=== PATIENT | male | born 1995 | race Two or more races ===

== ENCOUNTER 2017-09-14 08:51 | Emergency (ER) | payer OTHER ==
--- NOTE | 2017-09-14 10:39 | RADIOLOGY REPORT (SQ) ---
EXAM DESCRIPTION: TIBIA FIBULA RIGHT COMPLETED DATE/TIME: 09/14/2017 10:25 am REASON FOR STUDY: pain to lower leg COMPARISON: None. NUMBER OF VIEWS: Two views. TECHNIQUE: Two radiographic images acquired of the right tibia and fibula to include the knee and an kle in at least one projection. LIMITATIONS: None. FINDINGS: MINERALIZATION: Normal. BONES: No acute fracture or dislocation. No worrisome bone lesions. No significant osteophytes. SOFT TISSUES: No obvious swelling or foreign body. OTHER: No other significant finding. IMPRESSION: NEGATIVE STUDY OF THE RIGHT TIBIA AND FIBULA. NO EXPLANATION FOR PAIN. TECHNICAL DOCUMENTATION: JOB ID: [id number] [employer]- All Rights Reserved Reading location - IP/workstation name: [email or web address]
--- NOTE | 2017-09-14 11:48 | ER Document Report ---
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 Patient has been running a lot for his physical training. Reports he ran 2-1/2-3 miles 3 days ago. Patient denies any direct trauma to his leg. Patient is unable to bear weight on that leg. He reports that he noticed a color change to his right foot this morning. He noticed that his foot seemed bluish/purple for about 20 minutes before the color returned. Patient is a non- smoker. No recent travel. No recent surgeries. no chest pain or shortness of breath TRAVEL OUTSIDE OF THE [place] IN LAST 30 DAYS: No - HPI Patient complains to provider of: Pain Location: Leg - Right anterior Occurred: Other - 3 days Onset/Duration: Sudden, Persistent, Worse Quality of pain: Pressure, Stabbing Recent injury: No Exacerbated by: Walking Relieved by: Nothing - Related Data Allergies/Adverse Reactions: No Known Allergies Allergy (Unverified 09/14/17 10:03) Past Medical History - General Information source: Patient - Social History Smoking Status: Never Smoker Chew tobacco use (# tins/day): No Frequency of alcohol use: None Drug Abuse: None Occupation: [employer] Family History: Reviewed & Not Pertinent Patient has suicidal ideation: No Patient has homicidal ideation: No Renal/ Medical History: Denies: Hx Peritoneal Dialysis Review of Systems - Review of Systems Constitutional: No symptoms reported EENT: No symptoms reported Cardiovascular: No symptoms reported Respiratory: No symptoms reported Gastrointestinal: No symptoms reported Genitourinary: No symptoms reported Male Genitourinary: No symptoms reported Musculoskeletal: See HPI Skin: No symptoms reported Hematologic/Lymphatic: No symptoms reported Neurological/Psychological: No symptoms reported Physical Exam - Vital signs Vitals: Temp Pulse Resp BP Pulse Ox 98.4 F 72 16 138/69 H 96 09/14/17 09:05 09/14/17 09:05 09/14/17 09:05 09/14/17 09:05 09/14/17 09:05 Interpretation: Normal - General General appearance: Appears well, Alert - HEENT Head: Normocephalic, Atraumatic Eyes: Normal Pupils: PERRL - Respiratory Respiratory status: No respiratory distress Chest status: Nontender Breath sounds: Normal Chest palpation: Normal - Cardiovascular Rhythm: Regular Heart sounds: Normal auscultation Murmur: No - Abdominal Inspection: Normal Distension: No distension Bowel sounds: Normal Tenderness: Nontender Organomegaly: No organomegaly - Back Back: Normal, Nontender - Extremities General upper extremity: Normal inspection, Nontender, Normal color, Normal ROM , Normal temperature Knee: Normal Notes: Focal tenderness to right medial proximal tibial area. This pain radiates to mid mills and into his gastroc muscle. Foot and calf feel cool. There is a strong dorsalis pedis pulse but a weaker posterior tibial pulse. There is no anterior muscle tension/tightness consistent with a compartment syndrome. Negative Homans. Patient does experience pain with dorsal extension - Neurological Neuro grossly intact: Yes Cognition: Normal Orientation: AAOx4 Karen Coma Scale Eye Opening: Spontaneous [place] Coma Scale Verbal: Oriented [place] Coma Scale Motor: Obeys Commands Karen Coma Scale Total: 15 Speech: Normal Motor strength normal: LUE, RUE, LLE, RLE Sensory: Normal - Psychological Associated symptoms: Normal affect, Normal mood - Skin Skin Temperature: Warm Skin Moisture: Dry Skin Color: Normal Course - Re-evaluation Re-evalutation: 09/14/17 12:42 History and physical are most consistent with stress fractures (mills splints). I have ruled out a neurovascular injury or compromise with negative arterial ultrasound read by Dr Darrick Jesus. The tibial xray is negative. CK minimally elevated @ 204. Based on exam with no increasing pain or swelling, the suspicion for COMPARTMENT SYNDROME and DVT are low. No evidence of acute tendon rupture. I have discussed this patient with Dr Lyles who has evaluated him several times and I have reevaluated this patient multiple times and no significant changes noted. There is no increased swelling or pain. Pain remains localized to mid anterior mills. distal SMC intact with no marked difference in extremities. The patient and I have discussed the diagnosis and risks, and we agree with discharging home to closely follow-up with his primary doctor tomorrow. with the understanding that symptoms and presentations can change. We also discussed returning to the Emergency Department immediately if new or worsening symptoms occur. We have discussed the symptoms which are most concerning (e.g., changing or worsening pain, change in color) that necessitate immediate return 09/14/17 13:24 09/14/17 13:34 - Vital Signs Vital signs: Temp Pulse Resp BP Pulse Ox 98.4 F 72 16 138/69 H 96 09/14/17 09:05 09/14/17 09:05 09/14/17 09:05 09/14/17 09:05 09/14/17 09:05 - Laboratory Laboratory results interpreted by me: 09/14/17 10:00 Creatine Kinase 204 H Discharge - Discharge Clinical Impression: Right leg pain Condition: Stable Disposition: HOME, SELF-CARE Instructions: Oral Narcotic Medication ([facility]), Ibuprofen (General) ([facility]), Ice & Elevation ([facility]) Additional Instructions: Your arterial study was negative today Your tibial x-ray was negative today Your lab work was negative today Please take pain medication as prescribed Ice and elevate your leg. Follow-up with your primary care tomorrow for further orthopedic evaluation Prescriptions: Ibuprofen [Motrin 800 Mg Tablet] 800 mg PO Q6H #20 tablet Oxycodone HCl/Acetaminophen [Percocet 5-325 mg Tablet] 1 - 2 tab PO ASDIR PRN # 15 tablet PRN Reason:
--- NOTE | 2017-09-14 14:59 | XCELERA REPORT ---
[address] [address] Lower Extremity Arterial Evaluation Name: VERÓNICA LOCKETT Age: 21 yrs Gender: Male : 1995 Patient Status: Emergency Patient Location: ER Study Date: 09/14/2017 11:27 AM Procedure: A color flow and duplex scan of the lower extremity arteries was performed bilaterally with velocity and waveform anaylsis. Reason For Study: right lower leg pain, cool foot, weak DP pulse Ordering Physician: GABY BOATENG Performed By: Ivan Fu Measurements and Calculations Right Left SWIMMER PSV 71.7 cm/sec Prox PFA PSV -51.0 cm/sec Prox SFA PSV 87.9 cm/sec Mid SFA PSV -73.2 cm/sec Dist SFA PSV -60.9 cm/sec Prox Pop A PSV 42.4 cm/sec Dist RACHELE PSV 35.8 cm/sec Prox PRESS LOADER PSV 24.2 cm/sec Dist PRESS LOADER PSV 20.0 cm/sec Obinna Pedis PSV -28.7 -32.1 cm/sec Right Side Arterial Evaluation Normal velocity and triphasic waveforms noted from the Common Femoral artery to the Anterior Tibial artery, Biphasic in the Dorsalis Pedis . 0-19% stenosis at the Dorsalis Pedis . Ankle Brachial index ws declined.. Critical Findings Discussed with Gaby Boateng at about 1500. Interpretation Summary Mild hemodynamically significant lesions in the right lower extremity only, on duplex imaging, at rest. : GABY BOATENG > Darrick Jesus
[2017-09-14 15:29] VITALS: BP 130/72
== END 2017-09-14 15:29 | disposition home or self-care (01) ==
LOC: ER 08:51
DX: M79.661 Pain in right lower leg (principal); M79.1 Myalgia; R74.8 Abnormal levels of other serum enzymes
CPT/HCPCS: 36415; 82550; 93926; 99284

== ENCOUNTER → 2020-03-13 | Outpatient (CLI) | payer OTHER ==
[2020-03-13 16:45] LABS: INTERNATIONAL RATION (INR) 0.91; PROTHROMBIN TIME 12.4 SEC (11.4-15.4)
[2020-03-13 16:46] LABS: PARTIAL THROMBOPLASTIN TIME 27.6 SEC (23.5-35.8)
[2020-03-13 17:01] LABS: ALBUMIN 4.9 g/dL (3.5-5.0); ALKALINE PHOSPHATASE 124 U/L (38-126); ASPARTATE AMINO TRANSFERASE 104 U/L (17-59); BILIRUBIN,DIRECT 0.4 mg/dL (0.0-0.4); BILIRUBIN,TOTAL 0.5 mg/dL (0.2-1.3); IRON(TIBC) 132.5 ug/dL (49-181); TOTAL PROTEIN 8.2 g/dL (6.3-8.2)
== END ==
LOC: OD 14:56
PROVIDERS: ATTEND Nurse Practitioner Family
DX: F10.10 Alcohol abuse, uncomplicated (principal); R79.89 Other specified abnormal findings of blood chemistry
CPT/HCPCS: 36415; 80076; 82390; 82728; 83540; 83550; 85610; 85730; 86038; 86256; 86706; 87340; 87522